=== PATIENT | female | born 1970 | race Caucasian/White ===

== ENCOUNTER → 2022-06-23 13:34 | Outpatient (CLI) | payer OTHER, SELFPAY ==
--- NOTE | 2022-06-23 13:42 | XR_ITS ---
FINAL REPORT CLINICAL HISTORY: hand pain, BILAT THUMB PAIN FINDINGS: Left hand Three views were obtained. There is no acute fracture or dislocation. The joint spaces appear normal. No soft tissue abnormality is identified. IMPRESSION: No acute process. Reviewed, Interpreted and Dictated by Justin Bunch III, MD Transcribed by Silke Yeager Authenticated and . [facility]
--- NOTE | 2022-06-23 13:42 | XR_ITS ---
FINAL REPORT CLINICAL HISTORY: hand pain, BILAT THUMB PAIN FINDINGS: Right hand Three views were obtained. There is no acute fracture or dislocation. The joint spaces appear normal. No soft tissue abnormality is identified. IMPRESSION: No acute process. Reviewed, Interpreted and Dictated by Justin Bunch III, MD Transcribed by Silke Yeager Authenticated and [facility]
== END ==
PROVIDERS: Visit Provider Orthopaedic Surgery
DX: M79.642 Pain in left hand (principal); M79.641 Pain in right hand
CPT/HCPCS: 73130

== ENCOUNTER 2022-06-23 15:43 | Outpatient (RCR) | payer OTHER, SELFPAY | END 2022-06-23 16:50 | disposition home or self-care (01) | LOC: OT 15:43 | PROVIDERS: Visit Provider Orthopaedic Surgery | DX: M25.532 Pain in left wrist (principal); M25.531 Pain in right wrist | CPT/HCPCS: 97763 ==